=== PATIENT | male | born 1950 | race Caucasian/White ===

== ENCOUNTER 2016-08-31 07:48 | Inpatient (IN) | payer BC, OTHER ==
--- NOTE | 2016-08-18 11:37 | PAT Medication Instructions ---
Service Date Aug 18, 2016. Current Home Medication List Aspirin (Aspirin Ec), 81 MG PO BID B Complex W/ C (Vitamin B Complex-C), 1 TAB PO QAM Calcium Carbonate (Tums), 1-2 TAB PO PRN Multivitamin (Multivitamin), 1 TAB PO QAM Allen-3 Fatty Acids (Fish Oil), 1,000 MG PO QAM Medication Instructions For Your Scheduled Surgery Aspirin (Aspirin Ec), 81 MG PO BID (check with surgeon for instructions) - Hold the following medications starting 08/19/16: Allen-3 Fatty Acids (Fish Oil), 1,000 MG PO QAM - Hold the following medications the morning of surgery: B Complex W/ C (Vitamin B Complex-C), 1 TAB PO QAM Calcium Carbonate (Tums), 1-2 TAB PO PRN Multivitamin (Multivitamin), 1 TAB PO QAM If you have any questions please call us at [phone] (Jacinta Almodovar PA-C ) or [phone] or [phone]
[2016-08-18 12:03] LABS: BASO % 0.3 %; BASO ABS # 0.02 K/uL (0-0.2); COMPLETE YES; EOS % 0.7 %; HEMATOCRIT 41.7 % (42-52); IG% 0.3 %; LYMPH ABS # 2.58 K/uL (1.2-3.4); MEAN CELL VOLUME 90.5 fL (80-100); MEAN CORPUSCULAR HEMOGLOBIN 32.5 pg (25-34); MEAN PLATELET VOLUME 9.7 fL (7.4-10.4); MONO % 9.4 %; NEUT % 47.3 %; PLATELET COUNT 209 K/uL (130-400); RED BLOOD COUNT 4.61 M/uL (4.7-6.1); WHITE BLOOD COUNT 6.15 K/uL (4.8-10.8)
[2016-08-18 12:04] LABS: URINE APPEARANCE CLEAR (CLEAR); URINE BILIRUBIN NEG (NEG); URINE COLOR YELLOW; URINE NITRITE NEG (NEG); URINE SPECIFIC GRAVITY 1.015 (1.000-1.030); UROBILINOGEN NEG (NEG); ZZUR CULT IF INDIC CLEAN CATCH NO
[2016-08-18 12:05] LABS: MANUAL MICROSCOPIC REQUIRED? NO; REVIEW REQ? NO
--- NOTE | 2016-08-18 12:07 | DIAGNOSTIC IMAGING REPORT ---
CHEST 2 VIEWS ROUTINE CLINICAL HISTORY: Preoperative chest COMPARISON STUDY: May 20, 2015 FINDINGS: The cardiac and mediastinal contours are normal. There is no evidence of focal pulmonary consolidation. There is no evidence of failure. No pleural effusions are visualized.[ IMPRESSION: No active disease in the chest. Electronically signed by: Gerard Hernández M.D. 08/18/2016 12:06 PM Dictated Date/Time: 08/18/2016 12:01 PM
[2016-08-18 12:14] LABS: PARTIAL THROMBOPLASTIN RATIO 0.9; PROTHROMBIN TIME (PATIENT) 10.5 SECONDS (9.0-12.0)
[2016-08-18 12:31] LABS: BUN/CREATININE RATIO 18.2 (10-20); CALCIUM 10.1 mg/dl (8.5-10.1); CREATININE 0.96 mg/dl (0.60-1.40); POTASSIUM 4.2 mmol/L (3.5-5.1)
--- NOTE | 2016-08-28 12:35 | HISTORY & PHYSICAL EXAMINATION ---
DATE OF ADMISSION: 08/31/2016 CHIEF COMPLAINT: Left hip pain. HISTORY OF PRESENT ILLNESS: Ori is a 65-year-old male with a 6-month history of pain in his left hip. The patient rates his pain a 7/10. He has pain with his daily activities. He has limited standing and walking tolerance. Pain is worse with weightbearing. The patient is taking Celebrex without relief. He has failed conservative treatment and is scheduled for left hip replacement. PAST MEDICAL HISTORY: Acid reflux and osteoarthritis. He denies heart disease, diabetes or DVT. PAST SURGICAL HISTORY: Right total hip arthroplasty and nasal septal repair. SOCIAL HISTORY: The patient drinks 3 drinks per week. He denies tobacco use. He lives in a single story home. He lives alone but has help and is retired. FAMILY HISTORY: Negative for DVT. MEDICATIONS: Multivitamin, vitamin B complex, aspirin 81 mg and fish oil, Celebrex 100 mg. ALLERGIES: None. REVIEW OF SYSTEMS: See HPI. Ten other systems reviewed, all negative. PHYSICAL EXAMINATION: VITAL SIGNS: Height 5 foot 10. Weight 212 pounds. BMI is 30. GENERAL: This is a well-developed, well-nourished male who is alert and oriented x3. Mood and affect are appropriate. HEAD, EYES, EARS, NOSE, AND THROAT: Normocephalic, atraumatic. Mucous membranes are moist and intact. NECK: Supple without lymphadenopathy. HEART: Regular rate and rhythm without murmurs, rubs or gallops. LUNGS: Clear to auscultation without wheezes or rhonchi. ABDOMEN: Soft and nontender. Bowel sounds are equal and active. EXTREMITIES: No ecchymosis, redness or warmth. Thigh and calf are soft and nontender. Log roll of the hip reproduces pain in the groin. He is neurovascularly intact with +5/5 strength. He walks with an antalgic gait. X-RAY EXAMINATION: AP and lateral views show joint space narrowing and osteophyte formation. IMPRESSION: Degenerative joint disease, left hip. PLAN: The patient will be admitted for a left total hip arthroplasty. We will plan on aspirin for DVT prophylaxis. PCP is Dr. Patel at [facility]. [facility]
[2016-08-31] VITALS (8 sets, daily range): BP systolic 113–171; BP diastolic 67–102; PULSE 73–99; TEMP 36.4–36.8; O2SAT 95–98; Ht 177.8 cm; Wt 96.6 kg
[~2016-08-31] VITALS: Ht 177.8 cm; Wt 96.6 kg
[~2016-08-31 07:48] MED LIST: ACETAMINOPHEN 500 MG TAB PO SCH; ASPI81TA28 PO; ATROPINE SULFATE 0.1 MG/ML 5ML SYR IV PRN; B COCAP3 PO; BUPIVACAINE 0.5 % 5 MG/1 ML PF 10ML VIAL ONE; CALC500C3 PO; CEFAZOLIN 2000 MG/60 ML D5W 60 ML IV SCH; CeleBREX 200 MG CAP PO SCH; DEXAMETHASONE 4 MG TAB PO SCH; EpHEDrine SULFATE INJ 50 MG/ML AMP IV PRN; FAMOTIDINE 20 MG TAB PO SCH; FENTANYL CITRATE INJ 50 MCG/1 ML 2 ML VIAL IV PRN; GABAPENTIN 300 MG CAP PO SCH; LACTATED RINGER'S 1000ML 1,000 ML IV SCH; LACTATED RINGER'S 1000ML 500 ML IV ONE; LACTATED RINGER'S 1000ML IV SCH; METOCLOPRAMIDE HCL 10 MG TAB PO SCH; MULT-506 PO; OMEG10002 PO; ONDANSETRON INJ 2 MG/ML 2 ML VIAL IV PRN; OXYCODONE HCL 10 MG TABCR (OXYCONTIN) PO SCH; POLYMYXIN B SULFATE 100,000 UNITS in NSS 100ML IR SCH; ROPIVACAINE 5MG/ML 30 ML 150 MG, BUPIVACAINE/EPINEPHR 0.5% MPF 30 ML, KETOROLAC TROMETH... INFIL SCH; VANCOMYCIN INJ 400 MG in NSS 100ML IR SCH
[2016-08-31] MEDS ORDERED: MIDAZOLAM HCL 1 MG/ML 2ML VIAL ONE (08:10)
[2016-08-31] MEDS ORDERED: LIDOCAINE HCL 2% 2 ML VIAL (20MG/ML) ONE (08:10)
[2016-08-31] MEDS ORDERED: PROPOFOL IV EMULSION 10 MG/ML 20 ML VIAL IV ONE (08:10)
--- NOTE | 2016-08-31 09:22 | History & Physical Bridge Note ---
H&P Re-Evaluation Bridge Note: I have examined the patient, reviewed the History & Physical and in the interval since the performance of the History & Physical I have noted the following changes of clinical significance: No changes noted
[2016-08-31] MEDS ORDERED: ORTHO JOINT ANESTHETIC ONE (09:53)
[2016-08-31] MEDS ORDERED: POVIDONE-IODINE OP SOLN 30 ML BTL ONE (09:54)
[2016-08-31] MEDS ORDERED: BACITRACIN 50000 UNIT VIAL ONE (09:54)
--- NOTE | 2016-08-31 12:32 | [facility] Post Operative Brief Note ---
Immediate Operative Summary Operative Date Aug 31, 2016. Pre-Operative Diagnosis Degenerative joint disease, left hip Post-Operative Diagnosis Degenerative joint disease, left hip Procedure(s) Performed Total left knee arthroplasty, direct anterior approach Surgeon Dr Nacho Sherwood [place] Surgeon(s) Lucrecia Guajardo PA-C Estimated Blood Loss 50 ml Findings DJD Specimens A: Left femoral head Complication(s) None Disposition Recovery Room / PACU
[2016-08-31] MEDS ORDERED: DiphenhydrAMINE HCL 50 MG/ML VIAL IV PRN (12:45)
[2016-08-31] MEDS ORDERED: SOD PHOSPHATE/SOD BIPHOSPHATE ENEMA 132 ML BTL PR PRN (12:45)
[2016-08-31] MEDS ORDERED: BISACODYL 10 MG SUPP PR PRN (12:45)
[2016-08-31] MEDS ORDERED: METOCLOPRAMIDE HCL INJ 5 MG/ML 2 ML VIAL IV PRN (12:45)
[2016-08-31] MEDS ORDERED: MAGNESIUM HYDROXIDE SUSP 30 ML UDC PO PRN (12:45)
[2016-08-31] MEDS ORDERED: MoRPHine SULFATE 2 MG/ML CARP IV PRN (12:45)
[2016-08-31] MEDS ORDERED: ALUMINUM/MAGNESIUM/SIMETH (MAALOX MAX) 30 ML UDC PO PRN (12:45)
[2016-08-31] MEDS ORDERED: OXYCODONE HCL IR 5 MG TAB (IMMEDIATE RELEASE) PO PRN (12:45)
[2016-08-31] MEDS ORDERED: ZOLPIDEM TARTRATE 5 MG TAB PO PRN (12:45)
[2016-08-31] MEDS ORDERED: ONDANSETRON INJ 2 MG/ML 2 ML VIAL IV PRN (12:45)
[2016-08-31] MEDS ORDERED: TRAMADOL HCL 50 MG TAB PO PRN (12:45)
--- NOTE | 2016-08-31 13:12 | DIAGNOSTIC IMAGING REPORT ---
INTRAOPERATIVE FLUOROSCOPIC IMAGES OF THE LEFT HIP CLINICAL HISTORY: Left hip arthroplasty. COMPARISON STUDY: Pelvis radiographs June 11, 2015. Fluoroscopy time: 9 seconds. FINDINGS: 2 fluoroscopic images demonstrate anatomic alignment of the left hip arthroplasty. There is an acetabular screw. There is no fracture or unexpected radiopaque foreign body. IMPRESSION: Expected findings during left hip arthroplasty. Electronically signed by: Mitchell Hunter M.D. 08/31/2016 1:11 PM Dictated Date/Time: 08/31/2016 1:10 PM
--- NOTE | 2016-08-31 13:22 | Anesthesiology Progress Note ---
Anesthesia Post Op Note Date & Time Aug 31, 2016 at 13:23 Vital Signs Pain Intensity: 0 Vital Signs Past 12 Hours Date Time Temp Pulse Resp B/P Pulse Ox O2 Delivery O2 Flow Rate FiO2 08/31/16 13:14 67 17 08/31/16 13:14 66 17 97 08/31/16 13:13 107/68 08/31/16 13:09 79 17 08/31/16 13:09 17 97 08/31/16 13:08 115/66 08/31/16 13:04 65 19 96 08/31/16 13:04 73 19 08/31/16 13:03 113/67 08/31/16 13:02 96 19 96 08/31/16 13:02 76 19 08/31/16 12:58 127/61 08/31/16 12:57 74 15 97 08/31/16 12:57 74 15 08/31/16 12:53 117/60 08/31/16 12:52 36.9 84 18 119/68 98 Nasal Cannula 2 08/31/16 12:52 187 16 98 08/31/16 12:52 93 16 08/31/16 08:22 36.6 82 20 171/102 96 Room Air Notes Mental Status: alert / awake / arousable, participated in evaluation Pt Amnestic to Procedure: Yes Nausea / Vomiting: adequately controlled Pain: adequately controlled Airway Patency, RR, SpO2: stable & adequate BP & HR: stable & adequate Hydration State: stable & adequate Neuraxial Anesthesia: was administered, sensory block is resolving Anesthetic Complications: no major complications apparent
--- NOTE | 2016-08-31 13:45 | DIAGNOSTIC IMAGING REPORT ---
AP PELVIS, CROSSTABLE LATERAL LEFT HIP History: Left total hip arthroplasty. Degenerative arthritis. Postop. FINDINGS: The patient is status post a left total hip arthroplasty. The hardware is intact. No fracture or dislocation. Surgical drain is in place. Evidence for an old right total hip arthroplasty. IMPRESSION: Left total hip arthroplasty. No evidence for hardware complication. Electronically signed by: Herve Bryant M.D. 08/31/2016 1:43 PM Dictated Date/Time: 08/31/2016 1:43 PM
[2016-08-31] MEDS: TRANEXAMIC ACID INJ 1,000 MG in SODIUM CHLORIDE 0.9% 100ML 100 ML IV SCH ×2 (14:20→14:21)
[2016-08-31] MEDS: ACETAMINOPHEN 500 MG TAB PO SCH ×2 (14:40→21:32)
[2016-08-31] MEDS: D5W AND 1/2NSS + 20MEQ KCL 1,000 ML IV SCH (14:40)
[2016-08-31] MEDS ORDERED: INFLUENZA VIRUS QUAD VACCINE 0.5 ML SYR IM. ONE (15:00)
[2016-08-31] MEDS ORDERED: INFLUENZA ADMINISTRATION CHARGE ONE (15:00)
[2016-08-31] MEDS: KETOROLAC TROMETHAMINE 30 MG/ML VIAL IV. SCH ×2 (16:00→21:33)
[2016-08-31] MEDS ORDERED: TRANEXAMIC ACID INJ 1,000 MG in SODIUM CHLORIDE 0.9% 100ML 100 ML IV ONE (19:00)
[2016-08-31] MEDS: CEFAZOLIN IV 2,000 MG in DEXTROSE 5% 50ML 50 ML IV SCH (19:59)
[2016-08-31] MEDS ORDERED: SENNA 8.6 MG TAB PO SCH (21:00)
[2016-08-31] MEDS: ASPIRIN 81 MG ECTAB PO SCH (21:16)
--- NOTE | 2016-08-31 22:01 | OPERATIVE REPORT ---
DATE OF OPERATION: 08/31/2016 PREOPERATIVE DIAGNOSIS: Degenerative arthritis, left hip. POSTOPERATIVE DIAGNOSIS: Same. PROCEDURE: Left total hip replacement. SURGEON: Dr. Sherwood. INCIDENT COORDINATOR: HOLLIS Llanos. ANESTHESIA: Spinal. BLOOD LOSS: 50 mL. REPLACEMENT FLUIDS: 1700 mL crystalloid. DRAINS: Hemovacs x1. CULTURES: None. COMPLICATIONS: None. COMPONENTS USED: [employer] hip system: Acetabulum size 52, femur size 6 high offset, femoral head 0, neck length 36 mm. NOTE: HOLLIS Llanos was present and assisted throughout due to the complicated nature of this case. She helped with preparation and set up. She first assisted throughout and personally closed the fascial, subcutaneous and skin layers and applied the postoperative dressing. DESCRIPTION: Following satisfactory spinal, the patient was supine. The left leg was placed in the traction device, the right leg in the well leg mckeon. The leg was prepared with ChloraPrep and draped sterilely. Following a surgical time-out, an anterior approach to the hip and the interval between the sartorius and tensor muscles was completed. Circumflex femoral vessels were identified and ligated and an anterior capsulotomy was performed exposing a severely arthritic femoral neck and head. Femoral neck and head were trimmed and removed. The acetabular self-retraining retractor was placed. Acetabular reaming was completed and the 52 shell was impacted into an anatomic position and secured with a dome screw. The local anesthetic was placed and after irrigation, the polyethylene liner was placed. Attention was turned to the femur. The femur was prepared up to the size 6. A trial reduction with the size 6 showed good tensioning scientology of leg lengths using anatomic landmarks with fluoroscopy and good fit and fill of the proximal canal. The hip was dislocated, the trial components were removed, the final implant was placed and after irrigation the hip was reduced and position confirmed. A Betadine soak was performed. The capsule was then closed with 1-0 Vicryl interrupted. A drain was placed. The fascia was closed with a running suture of #1 Vicryl. After irrigation, the subcutaneous tissues were closed with 1 and 2-0 Vicryl. Skin was closed with a running subcuticular stitch of 3-0 V-Loc. Dermabond and a dry dressing were applied. The patient was returned to his bed in stable condition. I attest to the content of the Intraoperative Record and any orders documented therein. Any exceptio ns are noted below.
[2016-09-01] MEDS: D5W AND 1/2NSS + 20MEQ KCL 1,000 ML IV SCH (01:41)
[2016-09-01 03:44] VITALS: BP 138/79; PULSE 80; TEMP 36.5; O2SAT 98
[2016-09-01] MEDS: CEFAZOLIN IV 2,000 MG in DEXTROSE 5% 50ML 50 ML IV SCH (04:19)
[2016-09-01] MEDS: KETOROLAC TROMETHAMINE 30 MG/ML VIAL IV. SCH ×2 (04:19→09:31)
[2016-09-01] MEDS: ACETAMINOPHEN 500 MG TAB PO SCH (05:45)
[2016-09-01 06:45] LABS: BASO % 0.1 %; BASO ABS # 0.01 K/uL (0-0.2); COMPLETE YES; HEMATOCRIT 36.6 % (42-52); IG% 0.2 %; LYMPH % 10.1 %; LYMPH ABS # 1.57 K/uL (1.2-3.4); MEAN CELL VOLUME 92.4 fL (80-100); MEAN CORPUSCULAR HEMOGLOBIN 32.6 pg (25-34); MEAN CORPUSCULAR HGB CONC 35.2 g/dl (32-36); MEAN PLATELET VOLUME 9.9 fL (7.4-10.4); MONO % 7.7 %; NEUT % 81.9 %; PLATELET COUNT 152 K/uL (130-400); RED BLOOD COUNT 3.96 M/uL (4.7-6.1); WHITE BLOOD COUNT 15.55 K/uL (4.8-10.8)
[2016-09-01 07:14] VITALS: BP 171/97; PULSE 67; TEMP 36.5; O2SAT 99
[2016-09-01 07:22] LABS: BUN/CREATININE RATIO 17.7 (10-20); CALCIUM 8.4 mg/dl (8.5-10.1); CREATININE 0.98 mg/dl (0.60-1.40); POTASSIUM 4.2 mmol/L (3.5-5.1)
[2016-09-01 07:29] VITALS: BP 168/90; PULSE 74; O2SAT 99
[2016-09-01] MEDS ORDERED: CLB200 PO (07:39)
[2016-09-01] MEDS ORDERED: ASPI81TA28 PO (07:39)
[2016-09-01] MEDS ORDERED: ACET-1138 PO (07:39)
[2016-09-01] MEDS ORDERED: SNK PO (07:39)
[2016-09-01] MEDS ORDERED: ONDA8TAB6 PO (07:39)
[2016-09-01] MEDS ORDERED: RXC5 PO (07:39)
--- NOTE | 2016-09-01 07:41 | Discharge Instructions ---
Discharge Instructions Admission Reason for Admission: Left Hip Degenerative Arthritis Discharge Discharge Diagnosis / Problem: sp left DANIEL Discharge Goals Goal(s): Decrease discomfort, Improve function, Increase independence Activity Recommendations Activity Limitations: per Instructions/Follow-up section . Instructions / Follow-Up Instructions / Follow-Up ACTIVITY RECOMMENDATIONS: SELF CARE INSTRUCTIONS AFTER TOTAL HIP REPLACEMENT : Direct Anterior Approach Until the incision and soft tissues around your hip have healed, there is a possibility that the hip prosthesis could dislocate. A. Hip flexion ( Up & Down out of chair or steps ) may be difficult. This is normal. B. Numbness in front of the thigh is also normal for a few weeks. C. Use hand rails when walking on stairs. D. Wear low heeled shoes with non-slip soles. E. Be sure that your floors are free of things that could trip you - throw rugs , electrical cords, small objects. Avoid wet and waxed floors, especially with crutches and canes. F. Try to walk several times a day with rest periods between. G. Continue with all the exercises taught to you in the hospital. Again, make walking a part of your daily routine. SPECIAL CARE INSTRUCTIONS: VERY IMPORTANT TO READ AND REVIEW A. You may still be at risk for phlebitis and blood clots. 1. Wear surgical stockings (ORLY hose) for 2 weeks after surgery to improve circulation and reduce swelling. 2. Take Aspirin 81mg twice daily for 4 weeks or as directed by your doctor. This is your blood thinner. 3. High risk patients may be prescribed a stronger blood thinner if necessary. 4. If you are on Coumadin normally, your family doctor/conference interpreter should monitor your blood work. Expect a phone call the day of or the day after bloodwork is drawn to adjust your dosage. B. You must take antibiotics before having dental work, bladder, bowel and other surgery. Your doctor will provide you with a permanent card to carry describing precautions. C. Call [facility] if you have a fever, redness or swelling around the incision, cloudy drainage from incision, or sudden increase in pain in your hip, not relieved by your regular pain medication. D. Please call the office at if you have any concerns or questions about your operation or recovery. * YOU MAY SHOWER, NO TUB BATHS UNTIL CLEARED BY YOUR DOCTOR. - Keep an extra close eye on the top portion of your incision. Be sure to keep clean & dry. * WEAR ORLY HOSE 20 HOURS PER DAY FOR 2 WEEKS. * YOU MAY PROGRESS FROM A WALKER, TO A CANE, TO INDEPENDENT AT YOUR OWN PACE. * MOST PATIENTS WILL HAVE HOME NURSING FOR THERAPY. IF YOU DECIDE TO DO OUTPATIENT PHYSICAL THERAPY, PLEASE SCHEDULE THIS 3 TIMES PER WEEK. DRESSING INSTRUCTIONS: KEEP SURGICAL DRESSING ON X 1 WEEK THEN REMOVE- SEE BELOW FOR FURTHER INSTRUCTIONS. * DERMABOND Prineo- This is a mesh tape dressing that is covered with glue. It should remain in place until the incision is properly healed, usually 10-14 days. This dressing is designed to naturally slough off. You may trim the excess mesh tape as it peels off. Incision may be briefly wet in a shower. Dry immediately by blotting with a clean, dry towel. Do not bath or swim until instructed by your doctor. Do not scratch, rub, or pick at the dressing. Do not apply any topical ointments or lotions until dressing is completely removed and/or instructed by your doctor. There may be a small piece of suture material at one end of your incision. Do not pull or trim this. If it is bothersome or catching on clothing, you may cover it with a band-aid. FOLLOW UP VISIT: If appointment is not already scheduled: Please call [facility] to make a follow-up appointment for 2 weeks after your surgery at . Current Hospital Diet Patient's current hospital diet: Regular Diet Discharge Diet Recommended Diet: Regular Diet Procedures Procedures Performed: Total left knee arthroplasty, direct anterior approach Pending Studies Studies pending at discharge: no Medical Emergencies . Who to Call and When: Medical Emergencies: If at any time you feel your situation is an emergency, please call 911 immediately. . Non-Emergent Contact Non-Emergency issues call your: Primary Care Provider . "Provider Documentation" section prepared by Lucrecia Guajardo. VTE Core Measure Inpt VTE Proph given/why not?: Other Anticoagulation, T.E.D. Stockings, SCD's
--- NOTE | 2016-09-01 08:16 | DISCHARGE SUMMARY ---
DISCHARGE DIAGNOSIS: Degenerative joint disease, left hip. SECONDARY DIAGNOSIS: None. CONSULTS: None. COMPLICATIONS: None. PROCEDURE: The patient underwent a direct anterior left total hip arthroplasty with Dr. Sherwood on 08/31/2016. BRIEF HISTORY: Please see previously dictated history and physical. HOSPITAL SUMMARY: The patient was admitted on the above day for the above procedure. Procedure went without complication. Postop day 1, the patient was feeling well without complaints. He denied chest pain or shortness of breath. Vital signs were stable. He was afebrile. Dressing was clean, dry and intact. He was neurovascularly intact. Calves were soft and nontender. Hemovac drained 250 mL per shift. He began physical therapy per protocol. Hemoglobin was 12.9. He was discharged to home later that day in stable condition. For further review please see the chart. Lab, x-ray data and discharge instructions as per chart.
[2016-09-01] MEDS ORDERED: MULTIVITAMIN TAB PO SCH (09:00)
[2016-09-01] MEDS ORDERED: PANTOprazole SOD 40 MG TAB PO SCH (09:00)
[2016-09-01] MEDS: ASPIRIN 81 MG ECTAB PO SCH (09:31)
[2016-09-01 10:04] VITALS: BP 168/90; PULSE 74; TEMP 36.5; O2SAT 99
[2016-09-02] MEDS ORDERED: CeleBREX 200 MG CAP PO SCH (21:00)
== END 2016-09-01 11:00 | disposition home health service (06) | DRG 470 ==
LOC: ENRESERVDT → ENRESERVTM → C.ACU 07:48 → C.3E 08:00
PROVIDERS: ADMIT Orthopaedic Surgery; ATTEND Orthopaedic Surgery
PROC: 0SRB04Z Replacement of Left Hip Joint with Ceramic on Polyethylene Synthetic Substitute, Open Approach (ICD-10-PCS; principal; 2016-08-31 10:15)
DX: M16.12 Unilateral primary osteoarthritis, left hip (principal); K21.9 Gastro-esophageal reflux disease without esophagitis; Z23 Encounter for immunization; Z96.641 Presence of right artificial hip joint; Z79.1 Long term (current) use of non-steroidal anti-inflammatories (NSAID); Z79.82 Long term (current) use of aspirin